=== PATIENT | female | born 1960 | race Caucasian/White ===

== ENCOUNTER → 2016-12-19 | Outpatient (CLI) | payer OTHER ==
[~2016-12-19] MED LIST: ALLERGY INJECTIONS; ALLERGY RELIEF10 M1 PO; ALLERGY SHOT; ALLERGY SHOTS; CITRACAL + D CA1 TA1 PO; FOSAMAX; FOSAMAX70 MG PO; IBUPROFEN; IBUPROFEN200 M1 PO; IBUPROFEN800 MG PO; NEXIUM PO; NORCO1 TAB 10/3 PO; PATADAY2.5 ML OP; PERCOCET 5-3251 TAB PO; PHENERGAN25 M1 PO; ULTRAM PO; ZYRTEC PO
--- NOTE | ~2016-12-19 | BD1 ---
[facility] A Service of [facility] & [facility] RADIOLOGY TEXT RESULTS PATIENT: MERE SARKAR LOCATION: [facility] : 56 UNIT #: [id number] AGE: [address]: NAYELY DE LOS SANTOS MD (INT MED) SEX: F ORDER DR: [id number] [facility] [address] [place], [place] [address] [id number] O MR#: [id number] Acc #: [id number] NAME: MERE SARKAR : 1960 SEX: F STUDY DATE/TIME: 12/19/2016 9:52 UNIT: [facility] ROOM: STUDY DESCRIPTION: BD Dexa Bone Dens 1+ Site Attending Physician: Nayely De Los Santos M.D. Referring Physician: Nayely De Los Santos M.D. Ordering Physician: Nayely De Los Santos M.D. Primary Care Physician: Nayely De Los Santos M.D. MEDICAL IMAGING REPORT This report is preliminary unless electronic signature is present EXAM DEXA scan. DATE: 12/19/2016 HISTORY 56-year-old postmenopausal female for osteoporosis screening. On calcium supplementation. COMPARISON DEXA scan 10/07/2014. FINDINGS L1-L4 total bone mineral density is 0.712 g/cm2 with T-score -3.0 and Z-score -1.8, corresponding to the range of osteoporosis. This represents a 1.1% decrease in bone mineral density since 10/07/2014 which is not statistically significant. The left femoral neck bone mineral density is 0.542 g/cm2 with T-score -2.8 and Z-score -1.6, correspond to the range of osteoporosis. This represents a 9.1% decrease in bone mineral density since 10/07/2014, which is statistically significant. IMPRESSION 1. 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 This stratifies the patient at increased risk for fracture. Appropriate medical therapy is advised. 2. Statistically-significant decrease in bone mineral density within the left femoral neck in comparison to the 10/07/2014 DEXA scan. Dictated by... Dorie Tolentino M.D. [facility] A Service of [facility] RADIOLOGY TEXT RESULTS PATIENT: MERE SARKAR LOCATION: [facility] : 56 UNIT #: [id number] AGE: [address]: NAYELY DE LOS SANTOS MD (INT MED) SEX: F ORDER DR: THIS IS AN ELECTRONICALLY VERIFIED REPORT Dorie Tolentino M.D. at 12/22/2016 8:30 AM [place]/brent TD: 12/19/2016 14:51 JOB #: [id number] MEDICAL IMAGING REPORT Page 1 of 1 COPY
== END | disposition home or self-care (01) ==
LOC: CWCC 09:22
DX: M81.0 Age-related osteoporosis without current pathological fracture (principal)
CPT/HCPCS: 77080